=== PATIENT | female | born 1960 ===

== ENCOUNTER 2017-07-30 08:25 | Outpatient (CLI) | payer OTHER ==
--- NOTE | 2017-07-30 10:40 | XRay Report ---
XRAY BILATERAL KNEE FOUR VIEWS EACH: 07/30/17 08:25:00 CLINICAL: Knee pain. FINDINGS: Right: Mild osteopenia. Mild medial joint space narrowing with early osteophyte formation. Tiny patellofemoral joint osteophytes. A quadriceps insertion enthesophyte. No fracture or dislocation. No joint effusion. Normal soft tissues. Left: Mild osteopenia. Mild medial joint space narrowing. Tiny inferior patellofemoral joint osteophyte. A quadriceps insertion enthesophyte. No joint effusion. No fracture or dislocation. Normal soft tissues. 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 Bilateral quadriceps enthesopathy.
== END 2017-07-30 08:26 | disposition home or self-care (01) ==
LOC: SPVIMAG 08:25
PROVIDERS: ATTEND Orthopaedic Surgery Sports Medicine
DX: M17.0 Bilateral primary osteoarthritis of knee (principal); M85.861 Other specified disorders of bone density and structure, right lower leg; M85.862 Other specified disorders of bone density and structure, left lower leg; M77.8 Other enthesopathies, not elsewhere classified